=== PATIENT | female | born 1965 | race Caucasian/White ===

== ENCOUNTER 2016-12-23 11:53 | Emergency (ER) | payer MEDICAID, OTHER ==
[~2016-12-23] VITALS: Ht 160 cm; Wt 49.9 kg
[2016-12-23 11:53] VITALS: BP 153/101
[~2016-12-23 11:53] MED LIST: AMBIEN10 MG ORAL; AMBIEN5 MG ORAL; ATIVAN0.5 MG ORAL; BUSPAR10 MG ORAL; BUSPIRONE HCL10 M1 ORAL; CARISOPRODOL350 MG; CATAPRES0.2 MG ORAL; COLACE100 MG ORAL; CYCLOBENZAPRINE10 MG ORAL; DIFLUCAN200 MG ORAL; IBUPROFEN600 MG ORAL; IMITREX50 MG ORAL; LEXAPRO10 MG ORAL; LOESTRIN FE 1-1 EACH PO; LOESTRIN1 EAC1 PO; MONTELUKAST SOD10 MG ORAL; NORCO 10/3251 EA ORAL; NORCO 5-325 TA1 EACH ORAL; NORVASC5 MG ORAL; NYSTATIN100000 UN1 ORAL; OXYCODONE HCL5 MG ORAL; OXYCONTIN40 MG ORAL; PERCOCET 10-321 EAC1 PO; SEROQUEL400 MG ORAL; SINGULAIR10 MG ORAL; SOMA350 MG PO; SPIRIVA18 MCG INH; SUMATRIPTAN SUC50 MG PO; SYMBICORT 1601 PUFFS INH; SYMBICORT 16010.2 G1 IH; SYMBICORT2 PUFF1 INH; TOPIRAMATE100 MG ORAL; TRAMADOL HCL50 MG; TRAZODONE HCL150 MG ORAL; ZANTAC150 MG ORAL
--- NOTE | 2016-12-23 12:09 | Emergency Room Report ---
History of Present Illness General Chief Complaint: Seizure Source: Patient, EMS (Omid Stapleton M.D.) Present Illness HPI 51-year-old female history of hypertension, back surgeries with fusion, ? Insomnia or psych history on Seroquel, Presenting with seizure. Patient states that she takes the Seroquel for insomnia, she increased her dose of 1200 on her own because she said it was not working. Patient states that she feels like she had a seizure, states that she felt some twitching and remembers falling. Does not remember anything else. States that her family told her that she had a seizure was generalized shaking. Patient denies any history of seizures. Denies any daily alcohol use. Denies any recent head trauma. Denies possibility of . Denies any other drug use Now currently complaining of bilateral back pain, denies any headache nausea vomiting blurry vision at this time (Omid Stapleton M.D.) Allergies: Coded Allergies: CODEINE (Unverified Allergy, Severe, Itching, 05/20/14) IBUPROFEN (Unverified Allergy, Severe, Anaphylaxis, 05/20/14) KETOROLAC (Unverified Allergy, Severe, Anaphylaxis, 05/20/14) Patient History Past Medical History: see triage record Past Surgical History: none Pertinent Family History: none Last Menstrual Period: 11/26/16 Now: No Reviewed Nursing Documentation: PMH: Agreed, PSxH: Agreed (Omid Stapleton M.D. ) Nursing Documentation-PMH Hx Cardiac Problems: No Hx Hypertension: Yes Hx Asthma: Yes Hx COPD: Yes Hx Cancer: No Hx Gastrointestinal Problems: No (Omid Stapleton M.D.) Review of Systems All Other Systems: negative except mentioned in HPI (Omid Stapleton M.D.) Physical Exam Vital Signs Date Time Temp Pulse Resp B/P (MAP) Pulse Ox O2 Delivery O2 Flow Rate FiO2 12/23/16 11:32 98.4 84 16 144/107 99 Room Air Sp02 EP Interpretation: reviewed, normal General Appearance: normal inspection, well appearing, no apparent distress, alert, GCS 15, non-toxic Head: normocephalic - non boggy hematoma occipital region Eyes: bilateral eye normal inspection, bilateral eye PERRL, bilateral eye EOMI ENT: normal ENT inspection, normal pharynx, normal voice, moist mucus membranes Neck: normal inspection, full range of motion, supple Respiratory: normal inspection, lungs clear, normal breath sounds, no respiratory distress, no retraction, no wheezing, speaking full sentences, chest symmetrical Cardiovascular #1: normal inspection, regular rate, rhythm, no edema, normal capillary refill Cardiovascular #2: 2+ radial (R), 2+ radial (L) Gastrointestinal: normal inspection, non tender, soft, non-distended, no guarding Musculoskeletal: non-tender, other - b/l paraspinal lumbar tenderness no midline tenderness. Neurologic: normal inspection, alert, oriented x3, responsive, heavy cleaner III-XII nml as tested, motor strength/tone normal, sensory intact, speech normal Psychiatric: normal inspection, judgement/insight normal, memory normal Skin: normal inspection, normal color, no rash, warm/dry, well hydrated, normal turgor (Retino,Clairose M.D.) Medical Decision Making Diagnostic Impression: Primary Impression: Fall Qualified Codes: W19.XXXA - Unspecified fall, initial encounter Additional Impression: Back pain Qualified Codes: M54.5 - Low back pain; G89.29 - Other chronic pain ER Course 51-year-old female presenting with seizure DDX: Primary seizure, triggered by infection UTI/PNA vs. dehydration vs. medication non compliance Electrolyte disturbance: hypoglycemia vs. hyponatremia vs. hypocalcemia vs. hypomagnesemia Cardiac: Arrythmia/acs Intracranial pathology: intracranial bleed, stroke Tox Plan: BGM EKG, UCG Labs, seizure medication levels, tox labs CT head ER course: No further seizures in ED Has been stable during ED stay. AOx4, no neurological signs or symptoms it is unclear if patient actually had seizure yesterday as she states she does remember "shaking" CT head grossly negative given pain meds for back pain Signed out to Dr Lewis 51 yo F with back pain after falling, possible seizure first time seizure -fu CT head -pending back pain symptom control -DC with tylenol and robaxin in chart EKG Diagnostic Results EP Interpretation: Yes Rate: normal Rhythm: NSR ST Segments: Q waves in the inferior leads, prolonged QT interval, T wave inversion in V2 and V3 ASA given to patient: No Rhythm Strip EP Interpretation: Yes Rate: 77 Rhythm: NSR, no PVCs, no ectopy Laboratory Tests Test 10/29/17 12:00 White Blood Count 9.7 K/UL (4.8-10.8) Red Blood Count 4.85 M/UL (4.20-5.40) Hemoglobin 16.7 G/DL (12.0-16.0) H Hematocrit 46.2 % (37.0-47.0) Mean Corpuscular Volume 95 FL (80-99) Mean Corpuscular Hemoglobin 34.5 PG (27.0-31.0) H Mean Corpuscular Hemoglobin Concent 36.1 G/DL (32.0-36.0) H Red Cell Distribution Width 11.5 % (11.6-14.8) L Platelet Count 300 K/UL (150-450) Mean Platelet Volume 7.1 FL (6.5-10.1) Neutrophils (%) (Auto) 81.6 % (45.0-75.0) H Lymphocytes (%) (Auto) 10.4 % (20.0-45.0) L Monocytes (%) (Auto) 6.8 % (1.0-10.0) Eosinophils (%) (Auto) 0.6 % (0.0-3.0) Basophils (%) (Auto) 0.7 % (0.0-2.0) Sodium Level 140 MMOL/L (136-145) Potassium Level 3.9 MMOL/L (3.5-5.1) Chloride Level 104 MMOL/L (98-107) Carbon Dioxide Level 26 MMOL/L (21-32) Anion Gap 10 mmol/L (5-15) Blood Urea Nitrogen 12 mg/dL (7-18) Creatinine 0.9 MG/DL (0.55-1.30) Estimate Glomerular Filtration Rate > 60 mL/min (>60) Glucose Level 98 MG/DL (74-106) Calcium Level 10.2 MG/DL (8.5-10.1) H Total Bilirubin 0.8 MG/DL (0.2-1.0) Aspartate Amino Transferase (AST) 23 U/L (15-37) Alanine Aminotransferase (ALT) 20 U/L (12-78) Alkaline Phosphatase 81 U/L (46-116) Troponin I 0.000 ng/mL (0.000-0.056) Total Protein 9.0 G/DL (6.4-8.2) H Albumin 4.4 G/DL (3.4-5.0) Globulin 4.6 g/dL Albumin/Globulin Ratio 1.0 (1.0-2.7) Salicylates Level < 2.8 ug/mL (2.8-20) L Acetaminophen Level < 10 MCG/ML (10-30) L Serum Alcohol < 3 mg/dL (Omid Stapleton M.D.) ER Course Patient signed out to me at 2pm pending re-eval Patient with chronic back pain. Review of EMR shows known L5 fusion as far back as 2015 has been here before similar I doubt seizure - more like pseudoseizure - as patient remembers the actual event. No history of seizures High degree of anxiety Was given multiple rounds of pain medication by Dr Stapleton Feels better, ambulating DC home with PMD followup (HERSON LEWIS M.D.) CT/MRI/US Diagnostic Results CT/MRI/US Diagnostic Results : Imaging Test Ordered: CT head Impression Findings: The ventricular system is normal in size and configuration. There is no shift of midline structures. No abnormal extra-axial fluid collections are noted. There is no evidence of intracerebral bleeding. No other abnormal high or low density areas are noted within the brain. The calvarium is intact. The orbits and sinuses are unremarkable. Impression: Normal CT scan of the head without contrast material. This agrees with the preliminary interpretation provided overnight by [facility]. (Omid Stapleton M.D.) Last Vital Signs Date Time Temp Pulse Resp B/P (MAP) Pulse Ox O2 Delivery O2 Flow Rate FiO2 12/23/16 11:32 98.4 84 16 144/107 99 Room Air (Omid Stapleton M.D.) Status: improved (HERSON LEWIS M.D.) Disposition: HOME, SELF-CARE Condition: Improved Scripts Lidocaine (Lidoderm) 1 Each Adh..patch 1 PATCH TOPIC DAILY for 7 Days, #14 PATCH 0 Refills Patch(es) may remain in place for up to 12 hours in any 24-hour period. Prov: HERSON LEWIS M.D. 12/23/16 Acetaminophen* (ACETAMINOPHEN EXTRA STRENGTH*) 500 Mg Tablet 500 MG ORAL Q8H Y for Fever/Headache/Mild Pain, #30 TAB 0 Refills Prov: Omid Stapleton M.D. 12/23/16 Methocarbamol* (ROBAXIN-750*) 750 Mg Tablet 750 MG PO QID, #28 TAB 0 Refills Prov: Omid Stapleton M.D. 12/23/16 Patient Instructions: Back Pain, Adult, Seizure, Adult Omid Stapleton M.D. Dec 23, 2016 12:09 HERSON LEWIS M.D. Dec 23, 2016 14:11
[2016-12-23 12:24] LABS: BASOPHILS % (AUTO) 0.7 % (0.0-2.0); EOSINOPHILS % (AUTO) 0.6 % (0.0-3.0); LYMPHOCYTES % (AUTO) 10.4 % (20.0-45.0); MEAN CORPUSCULAR HEMOGLOBIN 34.5 PG (27.0-31.0); MEAN CORPUSCULAR HGB CONC 36.1 G/DL (32.0-36.0); MEAN CORPUSCULAR VOLUME 95 FL (80-99); MEAN PLATELET VOLUME 7.1 FL (6.5-10.1); MONOCYTES % (AUTO) 6.8 % (1.0-10.0); NEUTROPHILS % (AUTO) 81.6 % (45.0-75.0); PLATELET COUNT 300 K/UL (150-450); RED BLOOD COUNT 4.85 M/UL (4.20-5.40); RED CELL DISTRIBUTION WIDTH 11.5 % (11.6-14.8); WHITE BLOOD COUNT 9.7 K/UL (4.8-10.8)
[2016-12-23] MEDS ORDERED: Methocarbamol 750mg tab ORAL ONE (12:30)
[2016-12-23 12:45] LABS: ALANINE AMINOTRANSFERASE 20 U/L (12-78); ANION GAP 10 mmol/L (5-15); ASPARTATE AMINO TRANSFERASE 23 U/L (15-37); CALCIUM 10.2 MG/DL (8.5-10.1); CARBON DIOXIDE 26 MMOL/L (21-32); CHLORIDE 104 MMOL/L (98-107); CREATININE 0.9 MG/DL (0.55-1.30); GLOMERULAR FILTRATION RATE > 60 mL/min (>60); POTASSIUM 3.9 MMOL/L (3.5-5.1); SODIUM 140 MMOL/L (136-145)
[2016-12-23 13:16] LABS: ALCOHOL < 3 mg/dL
[2016-12-23 13:19] LABS: ACETAMINOPHEN < 10 MCG/ML (10-30)
[2016-12-23] MEDS ORDERED: ROBAXIN-750750 MG PO (13:27)
[2016-12-23] MEDS ORDERED: ACETAMINOPHEN500 M3 ORAL (13:27)
[2016-12-23] MEDS ORDERED: Morphine Sulfate 4mg/ml Inj IVP ONE (13:30)
[2016-12-23] MEDS ORDERED: LIDODERM700 M1 TOPIC (14:16)
[2016-12-23 14:20] VITALS: BP 139/83
--- NOTE | 2016-12-24 08:59 | Diagnostic Imaging Report ---
Indication: Altered mental status Technique: Continuous helical CT scanning of the head was performed without intravenous contrast material. Axial and coronal 5 mm sections were generated. Radiation dose was minimized using automated exposure control Dose: Total Dose Length Product - DLP [address] Dose Index - CTDIvol(s) 70.38 mGy. Comparison: 08/19/2014 Findings: The ventricular system is normal in size and configuration. There is no shift of midline structures. No abnormal extra-axial fluid collections are noted. There is no evidence of intracerebral bleeding. No other abnormal high or low density areas are noted within the brain. The calvarium is intact. The orbits and sinuses are unremarkable. Impression: Normal CT scan of the head without contrast material. This agrees with the preliminary interpretation provided overnight by [facility]. The CT scanner at [facility] is accredited by the [employer] and the scans are performed using protocols designed to limit radiation exposure to as low as reasonably achievable to attain images of sufficient resolution adequate for diagnostic evaluation.
--- NOTE | 2016-12-24 10:42 | Diagnostic Imaging Report ---
Indication: Shortness of breath/cough, respiratory disorders, COPD, asthma, bronchitis Technique: One view of the chest Comparison: Multiplanar 2015 Findings: Lungs and pleural spaces are clear. Heart size is normal. Lower cervical spine fusion hardware is again noted. Findings are unchanged Impression: No acute process
--- NOTE | 2016-12-27 18:03 | Cardiology Report ---
APPROVED REPORT EKG Measurement Heart [id number] NH 100P35 [id number] Sinus rhythm with short NH T wave abnormality, consider anterior ischemia Prolonged QT Abnormal ECG
== END 2016-12-23 14:40 | disposition home or self-care (01) ==
LOC: EDBD 11:53 → EMR 14:24
DX: M54.5 Low back pain (principal); W19.XXXA Unspecified fall, initial encounter; Y92.9 Unspecified place or not applicable; I10 Essential (primary) hypertension; J44.9 Chronic obstructive pulmonary disease, unspecified; G47.00 Insomnia, unspecified; R41.82 Altered mental status, unspecified; Z79.899 Other long term (current) drug therapy; Z88.6 Allergy status to analgesic agent; Z88.8 Allergy status to other drugs, medicaments and biological substances; Z98.1 Arthrodesis status
CPT/HCPCS: 36415; 70450; 71010; 80053; 80329; 84484; 85025; 93005; 96361; 96374; 99284; J2270

== ENCOUNTER 2017-01-02 15:37 | Outpatient (CLI) | payer MEDICAID ==
[~2017-01-02 15:37] MED LIST changes: +ACETAMINOPHEN500 M3 ORAL; +LIDODERM700 M1 TOPIC; +ROBAXIN-750750 MG PO
--- NOTE | 2017-01-02 16:42 | Diagnostic Imaging Report ---
Indication: Back pain Comparison: None Findings: 3 views of the lumbar spine were obtained. There is a severe vertebral fracture of the T12 vertebra. Acuity of this is unknown and. Please correlate clinically. Patient is at L4-5 posterior fusion with pedicle screws and fusion rods and discectomy. Bones appear osteopenic. Impression: Fracture of the T12 vertebra acuity indeterminate. The degree of collapse is severe estimated at 70%. Osteoporosis L4-5 fusion
--- NOTE | 2017-01-02 16:45 | Diagnostic Imaging Report ---
Indication: Neck Pain Findings: 3 views of the cervical spine were obtained. No acute fracture is identified. Anterior fusion at C4-5, discectomy at this level and discectomy/prosthesis placement C5-6 noted. Hardware alignment and position appear unremarkable. Flexion, neutral and extension views show no malalignment or significant change. Impression: Mid cervical discectomy and partial anterior fusion. Negative flexion and extension views. No subluxation demonstrated.
== END 2017-01-02 17:37 | disposition home or self-care (01) ==
LOC: RAD 15:37
DX: M43.22 Fusion of spine, cervical region (principal); S22.089A Unspecified fracture of T11-T12 vertebra, initial encounter for closed fracture; X58.XXXA Exposure to other specified factors, initial encounter; Y93.9 Activity, unspecified; Y92.9 Unspecified place or not applicable; M81.0 Age-related osteoporosis without current pathological fracture; M43.26 Fusion of spine, lumbar region
CPT/HCPCS: 72050; 72114

== ENCOUNTER 2017-01-02 16:50 | Emergency (ER) | payer MEDICAID, OTHER ==
[~2017-01-02] VITALS: Ht 160 cm; Wt 49.4 kg
[2017-01-02] MEDS ORDERED: oxyCODONE HCL/Acetaminophen 5/325mg ORAL ONE (18:00)
--- NOTE | 2017-01-02 19:18 | Emergency Room Report ---
History of Present Illness General Chief Complaint: Back Pain-No Injury Source: Patient Present Illness HPI 51-year-old female presents to the emergency department complaining of 10 out of 10 in severity back pain and both the thoracic spine and the lower lumbar area. Patient states that her pain has been progressive for approximately one week. Patient states she was seen by her primary care provider who referred her to the emergency department for further evaluation of her back pain. Patient states that she was hot spinal surgery in the past and is receiving regular medications for pain however her back pain has not been relieved with her usual medications. Patient denies trauma or fall other than recent seizure approximately a week ago. Patient denies numbness or tingling in the extremities she states that her pain in her spine is in the location that she has had pain in the past however it is unusual that her medications are not working. She states her pain in the T-spine is more appreciable than the lumbar area. She denies weakness in the lower extremities.Denies loss of sensation or gross motor movements of the extremities, incontinence of bowel or bladder. Denies urinary retention. Allergies: Coded Allergies: CODEINE (Unverified Allergy, Severe, Itching, 05/20/14) IBUPROFEN (Unverified Allergy, Severe, Anaphylaxis, 05/20/14) KETOROLAC (Unverified Allergy, Severe, Anaphylaxis, 05/20/14) Patient History Past Medical History: see triage record Past Surgical History: other - spine surgery hx Pertinent Family History: none Last Menstrual Period: 5 weeks Now: No Reviewed Nursing Documentation: PMH: Agreed, PSxH: Agreed Nursing Documentation-PMH Hx Cardiac Problems: No Hx Hypertension: Yes Hx Asthma: Yes Hx COPD: Yes Hx Cancer: No Hx Gastrointestinal Problems: No History Of Psychiatric Problem: Yes - insomnia Hx Neurological Problems: Yes - back problems Review of Systems All Other Systems: negative except mentioned in HPI Physical Exam Vital Signs Date Time Temp Pulse Resp B/P (MAP) Pulse Ox O2 Delivery O2 Flow Rate FiO2 01/02/17 16:54 98.1 91 16 141/92 98 Room Air Sp02 EP Interpretation: reviewed, normal General Appearance: no apparent distress, alert, GCS 15, non-toxic Head: normocephalic, atraumatic Eyes: bilateral eye normal inspection, bilateral eye PERRL ENT: hearing grossly normal, normal voice Neck: full range of motion, no bony tend, supple/symm/no masses Respiratory: lungs clear, normal breath sounds, speaking full sentences Cardiovascular #1: regular rate, rhythm, normal capillary refill Genitourinary: normal inspection, no CVA tenderness Musculoskeletal: back normal, gait/station normal, normal range of motion, tender - TTP to the midline and paraspinal area of the lower Thoracis spine, and the lumbar spine. Pt. NVI to both extremities Neurologic: alert, oriented x3, responsive, motor strength/tone normal, sensory intact, normal gait, speech normal, grossly normal, oriented Reflexes: 2+ ankle (R), 2+ ankle (L) Skin: normal color, no rash, warm/dry, well hydrated Medical Decision Making PA Attestation Dr. Garcia is my supervising Physician whom patient management has been discussed with. Diagnostic Impression: Primary Impression: Burst fracture of T12 vertebra Additional Impression: Exacerbation of chronic back pain ER Course 51-year-old female presents to the emergency department complaining of 10 out of 10 in severity back pain and both the thoracic spine and the lower lumbar area. Patient states that her pain has been progressive for approximately one week. Patient states she was seen by her primary care provider who referred her to the emergency department for further evaluation of her back pain. Patient states that she was hot spinal surgery in the past and is receiving regular medications for pain however her back pain has not been relieved with her usual medications. Patient denies trauma or fall other than recent seizure approximately a week ago. Patient denies numbness or tingling in the extremities she states that her pain in her spine is in the location that she has had pain in the past however it is unusual that her medications are not working. She states her pain in the T-spine is more appreciable than the lumbar area. She denies weakness in the lower extremities.Denies loss of sensation or gross motor movements of the extremities, incontinence of bowel or bladder. Denies urinary retention. Ddx considered but are not limited to Fracture, dislocation, contusion, Sprain/ Strain/Spasm, Epidural abscess, Neoplastic mets. just to name a few. Vital signs: are WNL, pt. is afebrile H&PE are most consistent with musculoskeletal injury will perform imaging to r/ o fractures/dislocations. ORDERS: - Urine Hcg: Negative - CT: T-spine: burst fracture of T12 -Per official radiology report- Please see report for specific details. - CT L-spine: Status post L4-L5 posterior pedicle screw and ruby fusion which appears intact--Per official radiology report- Please see report for specific details. ED INTERVENTIONS: - Percocet PO -D/w pt. results of her CT scan. advised pt. to rest in gurney and not to ambulate. Pt. is up and walking around multiple times. -Dilaudid 1mg IV -benadryl 25mg IV DISPOSITION: at this time pt. will be admitted to Dr. Ponce at [facility] for T12 [address] Ponce agreed to admit the pt. and to continue pt. care management. - PT. refused to be transferred to [facility] , immigration case worker will be contacted by reserves clerk to inquire if pt. is eligible to transfer to any alternative hospitals. d/w pt. that leaving AMA is not advised, and that we will do our best effort to see if she can be transferred to an alternate hospital. pt. is again advised to stay on gurney and refrain from ambulating about her room. -D/w pt. that attempts to find [facility] were unsuccessful, and that she is capped to [facility] per insurance and that is the hospital with neuro surgery that is available. Pt. agreed to go to [facility]. Labs Test 01/02/17 18:00 01/02/17 19:37 Urine HCG, Qualitative Negative White Blood Count 7.5 K/UL (4.8-10.8) Red Blood Count 5.19 M/UL (4.20-5.40) Hemoglobin 15.9 G/DL (12.0-16.0) Hematocrit 50.5 % (37.0-47.0) Mean Corpuscular Volume 97 FL (80-99) Mean Corpuscular Hemoglobin 30.7 PG (27.0-31.0) Mean Corpuscular Hemoglobin Concent 31.5 G/DL (32.0-36.0) Red Cell Distribution Width 11.8 % (11.6-14.8) Platelet Count 391 K/UL (150-450) Mean Platelet Volume 5.6 FL (6.5-10.1) Neutrophils (%) (Auto) 52.1 % (45.0-75.0) Lymphocytes (%) (Auto) 34.8 % (20.0-45.0) Monocytes (%) (Auto) 4.7 % (1.0-10.0) Eosinophils (%) (Auto) 6.5 % (0.0-3.0) Basophils (%) (Auto) 1.8 % (0.0-2.0) Prothrombin Time 9.9 SEC (9.30-11.50) Prothromb Time International Ratio 0.9 (0.9-1.1) Activated Partial Thromboplast Time 27 SEC (23-33) Sodium Level 139 MMOL/L (136-145) Potassium Level 4.5 MMOL/L (3.5-5.1) Chloride Level 104 MMOL/L (98-107) Carbon Dioxide Level 31 MMOL/L (21-32) Anion Gap 4 mmol/L (5-15) Blood Urea Nitrogen 13 mg/dL (7-18) Creatinine 1.1 MG/DL (0.55-1.30) Estimat Glomerular Filtration Rate 52.8 mL/min (>60) Glucose Level 122 MG/DL (74-106) Calcium Level 10.1 MG/DL (8.5-10.1) Total Bilirubin 0.2 MG/DL (0.2-1.0) Aspartate Amino Transf (AST/SGOT) 24 U/L (15-37) Alanine Aminotransferase (ALT/SGPT) 26 U/L (12-78) Alkaline Phosphatase 185 U/L (46-116) Total Protein 8.5 G/DL (6.4-8.2) Albumin 4.2 G/DL (3.4-5.0) Globulin 4.3 g/dL Albumin/Globulin Ratio 1.0 (1.0-2.7) Last Vital Signs Date Time Temp Pulse Resp B/P (MAP) Pulse Ox O2 Delivery O2 Flow Rate FiO2 01/02/17 16:54 98.1 91 16 141/92 98 Room Air Disposition: ADMITTED INPATIENT Condition: Serious Referrals: [facility],REFERRING (PCP) Lesli Cummins Jan 02, 2017 19:18
[2017-01-02] MEDS ORDERED: Morphine Sulfate 4mg/ml Inj IVP ONE ×2 (19:45→20:15)
[2017-01-02 19:53] VITALS: BP 137/94
[2017-01-02 19:53] LABS: BASOPHILS % (AUTO) 1.8 % (0.0-2.0); EOSINOPHILS % (AUTO) 6.5 % (0.0-3.0); HEMATOCRIT 50.5 % (37.0-47.0); HEMOGLOBIN 15.9 G/DL (12.0-16.0); LYMPHOCYTES % (AUTO) 34.8 % (20.0-45.0); MEAN CORPUSCULAR VOLUME 97 FL (80-99); MONOCYTES % (AUTO) 4.7 % (1.0-10.0); NEUTROPHILS % (AUTO) 52.1 % (45.0-75.0); PLATELET COUNT 391 K/UL (150-450); RED BLOOD COUNT 5.19 M/UL (4.20-5.40); RED CELL DISTRIBUTION WIDTH 11.8 % (11.6-14.8); WHITE BLOOD COUNT 7.5 K/UL (4.8-10.8)
[2017-01-02 20:03] LABS: INR 0.9 (0.9-1.1)
[2017-01-02 20:08] LABS: ALANINE AMINOTRANSFERASE 26 U/L (12-78); ALBUMIN 4.2 G/DL (3.4-5.0); ALKALINE PHOSPHATASE 185 U/L (46-116); ANION GAP 4 mmol/L (5-15); ASPARTATE AMINO TRANSFERASE 24 U/L (15-37); BILIRUBIN,TOTAL 0.2 MG/DL (0.2-1.0); BLOOD UREA NITROGEN 13 mg/dL (7-18); CALCIUM 10.1 MG/DL (8.5-10.1); CARBON DIOXIDE 31 MMOL/L (21-32); CHLORIDE 104 MMOL/L (98-107); CREATININE 1.1 MG/DL (0.55-1.30); POTASSIUM 4.5 MMOL/L (3.5-5.1); SODIUM 139 MMOL/L (136-145)
[2017-01-02] MEDS ORDERED: DiphenhydrAMINE 50mg/ml Inj IVP ONE (23:30)
[2017-01-02] MEDS ORDERED: HYDROmorphone 1mg/ml Carpuject IVP ONE (23:30)
[2017-01-03 01:26] VITALS: BP 132/85
[2017-01-03 02:17] VITALS: BP 132/85
--- NOTE | 2017-01-03 10:49 | Diagnostic Imaging Report ---
Indication: Back pain Technique: Continuous helical transaxial imaging of the lumbar spine was obtained from the lung bases to the pubic symphysis. No IV contrast was administered. Coronal 2-D reformats were also obtained. Study obtained in a Siemens sensation [address] Total Dose length Product (DLP): [address] Dose Index Volume (CTDIvol): 2.25, 10.71 mGy Comparison: None Findings: There is no evidence of an acute fracture or malalignment. Height and configuration of the vertebral bodies and intervertebral discs are within normal limits. The facets are unremarkable. There is no soft tissue swelling. There is posterior fusion hardware with pedicle screws and fusion rods at L4-5. Hardware alignment and position appear unremarkable. Discectomy and prosthesis noted at L4-5. Some streak artifact from hardware limits evaluation of adjacent bone and structures. The There is a severe compression fracture of the T12 vertebra with moderate posterior retropulsion. This is described on CT thoracic spine report for more detail. There is a moderate amount of stool within the visualized part of the colon. Impression: No acute findings in the lumbar spine. L4-5 fusion and discectomy noted. The CT scanner at [facility] is accredited by the [employer] and the scans are performed using dose optimization techniques as appropriate to a performed exam including Automatic Exposure control.
--- NOTE | 2017-01-03 10:53 | Diagnostic Imaging Report ---
Indication: Back pain Technique: Continuous helical transaxial imaging of the thoracic spine was obtained from the lung bases to the pubic symphysis. No IV contrast was administered. Coronal 2-D reformats were also obtained. Study obtained in a Siemens sensation [address] Total Dose length Product (DLP): [address] Dose Index Volume (CTDIvol): 2.5, 17.77 mGy Comparison: None Findings: There is a burst fracture of the T12 vertebra which is comminuted and about 80% loss of height. Paravertebral soft tissue swelling/edema noted. There is moderate retropulsion of vertebral fragments into the canal narrowing the central canal by at least 50%. Correlate clinically for cord compression. Evaluation with MRI could be done for more specific evaluation of the cord and/or cauda equina compression. The remainder of the thoracic spine is normal and intact. C5-6 disc prosthesis incidentally noted. There is evidence of an acute fracture of the T11 vertebra at the superior endplate and posterior superior corner of the vertebra. There is only minimal loss of height of the endplate. There is no retropulsion associated with this. Impression: Acute T12 burst fracture. Moderate retropulsion and suspected cord compression. Please correlate clinically. A mild nondisplaced fracture of the superior endplate T11. No associated retropulsion. [facility] has communicated the preliminary results to the Emergency Department. Their findings are largely concordant with this report. The CT scanner at [facility] is accredited by the [employer] and the scans are performed using dose optimization techniques as appropriate to a performed exam including Automatic Exposure control.
--- NOTE | 2017-01-13 16:26 | Cardiology Report ---
APPROVED REPORT EKG Measurement Heart [id number] [place] [id number] Normal sinus rhythm Right atrial enlargement RV conduction delay Borderline ECG
--- NOTE | 2017-01-13 16:26 | Cardiology Report ---
APPROVED REPORT EKG Measurement Heart [id number] [place] 112P75 [id number] Normal sinus rhythm Right atrial enlargement RV conduction delay Borderline ECG
--- NOTE | 2017-01-13 16:26 | Cardiology Report ---
APPROVED REPORT EKG Measurement Heart [id number] [place] 112P75 [id number] Normal sinus rhythm Right atrial enlargement RV conduction delay Borderline ECG
== END 2017-01-03 02:18 | disposition short-term general hospital (02) ==
LOC: EMR 18:08
DX: S22.081A Stable burst fracture of T11-T12 vertebra, initial encounter for closed fracture (principal); X58.XXXA Exposure to other specified factors, initial encounter; Y92.89 Other specified places as the place of occurrence of the external cause; G89.29 Other chronic pain; I10 Essential (primary) hypertension; J44.9 Chronic obstructive pulmonary disease, unspecified; Z98.890 Other specified postprocedural states
CPT/HCPCS: 36415; 72128; 72131; 80053; 81025; 85025; 85610; 85730; 86850; 86900; 86901; 93005; 96374; 96375; 96376; 99285; J1170; J1200; J2270; J2405

== ENCOUNTER 2017-03-19 02:20 | Emergency (ER) | payer OTHER ==
[~2017-03-19] VITALS: Ht 160 cm; Wt 52.2 kg
[2017-03-19 02:31] VITALS: BP 142/99
[2017-03-19] MEDS ORDERED: Norco 5mg/325mg tab ORAL ONE (02:45)
[2017-03-19] MEDS ORDERED: Albuterol/Ipratropium 3ml neb HHN ONE (02:45)
[2017-03-19] MEDS ORDERED: ADULT WAL-100 MG/5 M ORAL (02:54)
[2017-03-19] MEDS ORDERED: PREDNISONE20 MG ORAL (02:54)
[2017-03-19] MEDS ORDERED: ALBUTEROL SULF8.5 GM INH (02:54)
[2017-03-19 03:19] VITALS: BP 142/99
--- NOTE | 2017-03-19 04:41 | Emergency Room Report ---
History of Present Illness General Chief Complaint: Upper Respiratory Illness Source: Patient Present Illness HPI This 51-year-old female presented after increased cough and generalized body aches. Patient reports having a sore throat as well as cough which is nonproductive. She presenting prior history of COPD. She states she's never been a smoker. Patient states that she had prior history of low back fracture and has the previously had last been prescribed pain medication and approximately December. The patient stated that she had multiple of COPD exacerbations and normally takes steroids as well as pain medications when she has a flare Allergies: Coded Allergies: CODEINE (Unverified Allergy, Severe, Itching, 05/20/14) IBUPROFEN (Unverified Allergy, Severe, Anaphylaxis, 05/20/14) KETOROLAC (Unverified Allergy, Severe, Anaphylaxis, 05/20/14) Patient History Past Medical History: see triage record, COPD Past Surgical History: other - lumbar fracture surgery Last Menstrual Period: feb 24 Now: No Reviewed Nursing Documentation: PMH: Agreed, PSxH: Agreed Nursing Documentation-PMH Hx Cardiac Problems: No Hx Hypertension: Yes Hx Asthma: Yes Hx COPD: Yes Hx Cancer: No Hx Gastrointestinal Problems: No Hx Neurological Problems: Yes Review of Systems All Other Systems: negative except mentioned in HPI Physical Exam Vital Signs Date Time Temp Pulse Resp B/P (MAP) Pulse Ox O2 Delivery O2 Flow Rate FiO2 03/19/17 02:22 99.1 86 18 142/99 98 Room Air 03/19/17 02:31 98 General Appearance: well appearing, no apparent distress, alert, GCS 15 Head: normocephalic, atraumatic ENT: hearing grossly normal, normal voice Neck: full range of motion, supple Respiratory: lungs clear, normal breath sounds, no respiratory distress, speaking full sentences Cardiovascular #1: normal inspection, normal peripheral pulses Gastrointestinal: normal inspection Musculoskeletal: no calf tenderness Neurologic: normal gait Psychiatric: mood/affect normal Skin: no rash Medical Decision Making Diagnostic Impression: Primary Impression: Bronchitis Additional Impressions: Viral respiratory infection Chronic pain ER Course Patient presented for cough. Differential diagnosis included but was not limited to bronchitis, pneumonia, pulmonary embolism, pericarditis, asthma, foreign body. Patient has a benign exam and does not appear to require any further imaging or laboratory testing at this time. The patient was given Percocet for pain. The [facility] database was reviewed for the patient's prior prescription history. The patient was noted to have multiple recent prescriptions for controlled substances and despite patient's prior statements that she last received pain medications in December she was noted to have received the 90 hydrocodone pills approximately 3 weeks prior to visit. The patient given breathing treatment. The patient is given prescription for oral steroids. The patient states she's adequate doses of her inhalers. The patient is advised followup with her primary care physician's for any desired pain prescription. The patient is advised to follow up with primary care doctor in 1-2 days. Patient is advised to return if any worsening condition or if any changes in status that are concerning. This report is dictated with [employer] thread singer software which may occasionally lead to discrepancies related to use of this software. Last Vital Signs Date Time Temp Pulse Resp B/P (MAP) Pulse Ox O2 Delivery O2 Flow Rate FiO2 03/19/17 03:19 99.1 86 22 142/99 99 Room Air 21 Status: improved Disposition: HOME, SELF-CARE Condition: Stable Scripts Guaifenesin* (ADULT WAL-TUSSIN*) 100 Mg/5 Ml Liquid 10 ML ORAL Q4H, #120 ML Prov: Yousif Garcia 03/19/17 Albuterol Sulfate* (ALBUTEROL SULFATE MDI*) 8.5 Gm Hfa.aer.ad 2 PUFF INH Q4H Y for cough/wheezing, #1 EA 0 Refills Prov: Yousif Garcia 03/19/17 Prednisone* (PREDNISONE*) 20 Mg Tablet 40 MG ORAL DAILY, #10 TAB Prov: Yousif Garcia 03/19/17 Patient Instructions: Acute Bronchitis Yousif Garcia Mar 19, 2017 04:41
== END 2017-03-19 03:20 | disposition home or self-care (01) ==
LOC: EMR 02:32
DX: J40 Bronchitis, not specified as acute or chronic (principal); J06.9 Acute upper respiratory infection, unspecified; B97.89 Other viral agents as the cause of diseases classified elsewhere; G89.29 Other chronic pain; J44.9 Chronic obstructive pulmonary disease, unspecified; I10 Essential (primary) hypertension; Z88.6 Allergy status to analgesic agent
CPT/HCPCS: 94640; 99283; J7620

== ENCOUNTER 2017-04-07 15:14 | Emergency (ER) | payer OTHER ==
[~2017-04-07] VITALS: Ht 157.5 cm; Wt 52.2 kg
[~2017-04-07 15:14] MED LIST changes: +ADULT WAL-100 MG/5 M ORAL; +ALBUTEROL SULF8.5 GM INH; +PREDNISONE20 MG ORAL
--- NOTE | 2017-04-07 15:16 | Emergency Room Report ---
History of Present Illness General Chief Complaint: Lower Extremity Injury Present Illness HPI Patient 51-year-old female brought in by EMS after increased pain to her left foot. The patient prior history of chronic pain. She was noted have increased pain to her left foot after ambulating and stated that she felt a pop. She reports having pain to the lateral aspect of the left foot. She was having difficulty ambulating. The patient brought in by EMS. As she is currently seeing pain management Allergies: Coded Allergies: CODEINE (Unverified Allergy, Severe, Itching, 05/20/14) IBUPROFEN (Unverified Allergy, Severe, Anaphylaxis, 05/20/14) KETOROLAC (Unverified Allergy, Severe, Anaphylaxis, 05/20/14) Patient History Past Medical History: see triage record Now: No Reviewed Nursing Documentation: PMH: Agreed, PSxH: Agreed Review of Systems All Other Systems: negative except mentioned in HPI Physical Exam Vital Signs Date Time Temp Pulse Resp B/P (MAP) Pulse Ox O2 Delivery O2 Flow Rate FiO2 04/07/17 15:09 98.1 84 16 102/72 98 Room Air General Appearance: well appearing, no apparent distress, alert, GCS 15 Head: normocephalic, atraumatic ENT: hearing grossly normal, normal voice Neck: full range of motion, supple Respiratory: no respiratory distress, speaking full sentences Cardiovascular #1: normal inspection Musculoskeletal: normal inspection, back normal, digits/nails normal, no calf tenderness, decreased range of mation Neurologic: normal inspection, alert, oriented x3, normal gait Psychiatric: mood/affect normal Skin: no rash Medical Decision Making Diagnostic Impression: Primary Impression: Foot fracture, left ER Course Patient presented for foot pain. Differential diagnoses include was was not limited to cellulitis, foreign body, fracture, plantar fasciitis, vascular insufficiency, sprain. Because of complexity of patient's case imaging studies were ordered. The patient was noted to have prior history of chronic pain. The left foot x-ray 3 views interpreted by me showed nondisplaced hairline fracture of the cuboid. Patient was noted to have intact pulses. X-ray 3 views of the left ankle interpreted by me showed normal allow without evident fracture. Patient was placed in posterior splint given crutches.[facility] was reviewed for the patient's prior prescription history.Patient is given prescription for Percocet. The patient was advised followup with orthopedics. Last Vital Signs Date Time Temp Pulse Resp B/P (MAP) Pulse Ox O2 Delivery O2 Flow Rate FiO2 04/07/17 15:09 98.1 84 16 102/72 98 Room Air Status: improved Disposition: HOME, SELF-CARE Condition: Stable Scripts Oxycodone/Acetaminophen 5-325* (PERCOCET 5-325 MG TABLET*) 1 Each Tablet 1 TAB ORAL Q4H Y for For Pain, #15 TAB 0 Refills Prov: Yuosif Garcia 04/07/17 Yousif Garcia Apr 07, 2017 15:16
[2017-04-07] MEDS ORDERED: PERCOCET 5-3251 EACH ORAL (15:41)
[2017-04-07 16:30] VITALS: BP 102/72
--- NOTE | 2017-04-08 10:43 | Diagnostic Imaging Report ---
Indication: left ankle pain Comparison: None Findings: 3 views of the left ankle obtained. No acute fracture, malalignment, periostitis, or osteochondral defects are identified. Soft tissues are unremarkable. Impression: No acute findings
--- NOTE | 2017-04-08 10:45 | Diagnostic Imaging Report ---
Indication: Pain Comparison: None Findings: 3 views of the left foot were obtained. No acute fractures, malalignment, erosions or periostitis are identified. Soft tissues are unremarkable. Impression: No acute findings
== END 2017-04-07 17:17 | disposition home or self-care (01) ==
LOC: EDBD 15:14 → EMR 15:43
DX: S92.902A Unspecified fracture of left foot, initial encounter for closed fracture (principal); X58.XXXA Exposure to other specified factors, initial encounter; Y92.9 Unspecified place or not applicable; Z88.6 Allergy status to analgesic agent; Z88.5 Allergy status to narcotic agent
CPT/HCPCS: 29515; 99284

== ENCOUNTER 2017-10-31 21:49 | Emergency (ER) | payer OTHER ==
[~2017-10-31] VITALS: Ht 160 cm; Wt 56.7 kg
[~2017-10-31 21:49] MED LIST changes: +PERCOCET 5-3251 EACH ORAL
--- NOTE | 2017-10-31 22:15 | Emergency Room Report ---
History of Present Illness General Chief Complaint: Upper Respiratory Illness Source: Patient, EMS Present Illness HPI Is a 52-year-old female with history of chronic pain. She also has history of COPD. She presents with chief complaint of hemoptysis. Said that she been coughing and noticed some specks of blood. Also with sore throat and losing her voice. His been ongoing for the last to 3 days. No nausea no vomiting. No fever chills. Worse with coughing. Worse with swallowing. Denies any other complaint. Denies any chest pain or weight loss. Allergies: Coded Allergies: CODEINE (Unverified Allergy, Severe, Itching, 05/20/14) IBUPROFEN (Unverified Allergy, Severe, Anaphylaxis, 05/20/14) KETOROLAC (Unverified Allergy, Severe, Anaphylaxis, 05/20/14) Patient History Past Medical History: see triage record, old chart reviewed Past Surgical History: other Pertinent Family History: none Social History: Denies: smoking Now: No Immunizations: other Reviewed Nursing Documentation: PMH: Agreed; PSxH: Agreed Nursing Documentation-PMH Hx Cardiac Problems: No Hx Hypertension: Yes Hx Asthma: Yes Hx COPD: Yes Hx Cancer: No Hx Gastrointestinal Problems: No Hx Neurological Problems: Yes Review of Systems Eye: Denies: eye pain, blurred vision ENT: Denies: ear pain, nose congestion, throat swelling Respiratory: Reports: cough; Denies: shortness of breath Cardiovascular: Denies: chest pain, palpitations Gastrointestinal: Denies: abdominal pain, diarrhea, nausea, vomiting Musculoskeletal: Denies: back pain, joint pain Skin: Denies: rash Neurological: Denies: headache, numbness Endocrine: Denies: increased thirst, increased urine Hematologic/Lymphatic: Denies: easy bruising All Other Systems: negative except mentioned in HPI Physical Exam Vital Signs Date Time Temp Pulse Resp B/P (MAP) Pulse Ox O2 Delivery O2 Flow Rate FiO2 10/31/17 22:00 98.6 69 18 134/92 95 Room Air 98.6 vitals normal Sp02 EP Interpretation: reviewed, normal General Appearance: well appearing, no apparent distress, alert Head: normocephalic, atraumatic Eyes: bilateral eye PERRL, bilateral eye EOMI ENT: hearing grossly normal, normal pharynx Neck: full range of motion, supple, no meningismus Respiratory: chest non-tender, lungs clear, normal breath sounds Cardiovascular #1: regular rate, rhythm, no murmur Gastrointestinal: normal bowel sounds, non tender, no mass, no organomegaly, no bruit, non-distended Musculoskeletal: back normal, gait/station normal, normal range of motion Neurologic: alert, oriented x3 Psychiatric: anxious Skin: warm/dry Medical Decision Making Diagnostic Impression: Primary Impression: Hemoptysis Additional Impressions: Laryngitis Cocaine abuse ER Course Patient with a cough and hemoptysis. No evidence of pneumonia, sepsis, PE or dissection. Her discharge home. Chest X-Ray Diagnostic Results Chest X-Ray Diagnostic Results : Chest X-Ray Ordered: Yes # of Views/Limited/Complete: 1 View Indication: Chest Pain EP Interpretation: Yes Interpretation: no consolidation, no effusion, no pneumothorax, no acute cardiopulmonary disease, other - Atelectasis left lower lobe, unchanged Impression: No acute disease Electronically Signed by: Reuben Duggan MD Last Vital Signs Date Time Temp Pulse Resp B/P (MAP) Pulse Ox O2 Delivery O2 Flow Rate FiO2 10/31/17 22:00 98.6 69 18 134/92 95 Room Air 98.6 Status: improved Disposition: HOME, SELF-CARE Condition: Stable Additional Instructions: Abstain from drugs and alcohol. Follow-up with your doctor in 7 days. Return if symptom worsen. REUBEN DUGGAN M.D. Oct 31, 2017 22:15
[2017-10-31 22:26] LABS: BASOPHILS % (AUTO) 0.9 % (0.0-2.0); EOSINOPHILS % (AUTO) 1.6 % (0.0-3.0); HEMATOCRIT 39.7 % (37.0-47.0); HEMOGLOBIN 14.3 G/DL (12.0-16.0); LYMPHOCYTES % (AUTO) 21.7 % (20.0-45.0); MEAN CORPUSCULAR VOLUME 90 FL (80-99); MONOCYTES % (AUTO) 4.4 % (1.0-10.0); NEUTROPHILS % (AUTO) 71.4 % (45.0-75.0); PLATELET COUNT 254 K/UL (150-450); RED BLOOD COUNT 4.39 M/UL (4.20-5.40); RED CELL DISTRIBUTION WIDTH 10.9 % (11.6-14.8); WHITE BLOOD COUNT 11.6 K/UL (4.8-10.8)
[2017-10-31 22:34] LABS: ANION GAP 8 mmol/L (5-15); BLOOD UREA NITROGEN 12 mg/dL (7-18); CALCIUM 9.9 MG/DL (8.5-10.1); CARBON DIOXIDE 25 MMOL/L (21-32); CHLORIDE 104 MMOL/L (98-107); POTASSIUM 4.1 MMOL/L (3.5-5.1); SODIUM 137 MMOL/L (136-145)
[2017-10-31 22:51] LABS: APPEARANCE,URINE CLEAR; BILIRUBIN, URINE NEGATIVE (NEGATIVE); COLOR,URINE PALE YELLOW; GLUCOSE, URINE (UA) NEGATIVE (NEGATIVE); KETONES,URINE NEGATIVE (NEGATIVE); LEUKOCYTE ESTERASE ,URINE 1+ (NEGATIVE); NITRITE,URINE NEGATIVE (NEGATIVE); PH,URINE 7 (4.5-8.0); PROTEIN,URINE NEGATIVE (NEGATIVE); UROBILINOGEN,URINE NORMAL MG/DL (0.0-1.0)
[2017-11-01 00:01] VITALS: BP 134/92
--- NOTE | 2017-11-01 09:43 | Diagnostic Imaging Report ---
Indication: Dyspnea Comparison: 12/23/2016 A single view chest radiograph was obtained. Findings: Cardiomediastinal appearance is within normal limits for age. Pulmonary vascularity is appropriate. The diaphragmatic contour is smooth and costophrenic angles are sharp. No pleural effusions are identified. Lower thoracic/upper lumbar hardware has been placed. Impression: No acute findings
== END 2017-11-01 00:01 | disposition home or self-care (01) ==
LOC: EMR 22:28
DX: R04.2 Hemoptysis (principal); J04.0 Acute laryngitis; J44.9 Chronic obstructive pulmonary disease, unspecified; I10 Essential (primary) hypertension; R07.9 Chest pain, unspecified; F14.10 Cocaine abuse, uncomplicated
CPT/HCPCS: 36415; 71045; 80048; 80307; 81003; 81025; 85025; 85379; 99284

== ENCOUNTER 2019-04-04 01:28 | Emergency (ER) | payer OTHER ==
[~2019-04-04] VITALS: Ht 160 cm; Wt 63.5 kg
--- NOTE | 2019-04-04 01:48 | NUR ---
ED Nurse Note: PT walked in to ED for C/O dysuria since this morning ( 04/03/19)
[2019-04-04 01:49] VITALS: BP 130/98
[2019-04-04] MEDS ORDERED: Phenazopyridine 200mg tab ORAL ONE (02:00)
[2019-04-04] MEDS ORDERED: MACROBID100 MG ORAL (02:03)
[2019-04-04] MEDS ORDERED: PHENAZOPYRIDIN200 MG ORAL (02:03)
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
[2019-04-04 02:06] VITALS: BP 122/93
--- NOTE | 2019-04-04 02:06 | NUR ---
ER DISCHARGE NOTE: Patient is cleared to be discharged per ERMD, pt is aox4, on room air, with stable vital signs. pt was given dc and prescription instructions, pt was able to verbalize understanding, pt id band removed without complications. pt is able to ambulate with steady gait. pt took all belongings.
[2019-04-07] MEDS ORDERED: CEPHALEXIN500 MG ORAL (11:39)
== END 2019-04-04 20:26 | disposition home or self-care (01) ==
LOC: EMR 02:25
DX: N30.00 Acute cystitis without hematuria (principal); I10 Essential (primary) hypertension; J44.9 Chronic obstructive pulmonary disease, unspecified; Z88.6 Allergy status to analgesic agent
CPT/HCPCS: 87086; 87181; 99282

== ENCOUNTER 2019-04-05 05:28 | Emergency (ER) | payer OTHER ==
[~2019-04-05] VITALS: Ht 160 cm; Wt 63.5 kg
[~2019-04-05 05:28] MED LIST changes: +MACROBID100 MG ORAL; +PHENAZOPYRIDIN200 MG ORAL
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
--- NOTE | 2019-04-05 05:44 | NUR ---
ED Nurse Note: ERMD at bedside.
[2019-04-05 05:45] VITALS: BP 155/102
[2019-04-05 05:50] LABS: APPEARANCE,URINE CLOUDY; BILIRUBIN, URINE NEGATIVE (NEGATIVE); COLOR,URINE BROWN; GLUCOSE, URINE (UA) NEGATIVE (NEGATIVE); KETONES,URINE 2+ (NEGATIVE); LEUKOCYTE ESTERASE ,URINE 3+ (NEGATIVE); NITRITE,URINE POSITIVE (NEGATIVE); PH,URINE 7 (4.5-8.0); PROTEIN,URINE 2+ (NEGATIVE); UROBILINOGEN,URINE 1 MG/DL (0.0-1.0)
[2019-04-05] MEDS ORDERED: Acetaminophen 500mg (ES) tab ORAL ONE (06:00)
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
[2019-04-05] MEDS ORDERED: HYDROmorphone 1mg/ml Carpuject IVP ONE (06:15)
[2019-04-05] MEDS ORDERED: cefTRIAXone 1 GM in NS 55 ML IVPB ONE (06:15)
[2019-04-05 07:09] VITALS: BP 148/99
--- NOTE | 2019-04-05 07:13 | NUR ---
ER DISCHARGE NOTE: Patient is cleared to be discharged per ERMD, pt is aox4, on room air, with stable vital signs. pt was given dc instructions, pt was able to verbalize understanding, pt id band and iv site removed without complications. pt is able to ambulate with steady gait. pt took all belongings. pt stable upon discharge.
[2019-04-07] MEDS ORDERED: CEPHALEXIN500 MG ORAL (11:39)
== END 2019-04-05 07:09 | disposition home or self-care (01) ==
LOC: EMR 05:40
DX: N30.00 Acute cystitis without hematuria (principal); G89.4 Chronic pain syndrome; I10 Essential (primary) hypertension; J44.9 Chronic obstructive pulmonary disease, unspecified; Z88.6 Allergy status to analgesic agent
CPT/HCPCS: 80307; 81003; 87086; 87181; 96365; 96375; 99284; J0696; J1170

== ENCOUNTER 2019-08-09 12:15 | Emergency (ER) | payer OTHER ==
[~2019-08-09] VITALS: Ht 160 cm; Wt 68.0 kg
[~2019-08-09 12:15] MED LIST changes: +CEPHALEXIN500 MG ORAL
--- NOTE | 2019-08-09 12:30 | NUR ---
ED Nurse Note: Sd/[employer] Resistance -[phone]
--- NOTE | 2019-08-09 12:31 | NUR ---
ED Nurse Note: Pt ambulated to ED from home d/t "loss of balance, dizziness, bodyaches and vomiting"x 3 days. Per pt, "I feel like I keep on falling down at home". Pt is AOx4, VSS, afebrile on triage, satting at 96% on RA. Placed on bed.
[2019-08-09 12:38] VITALS: BP 129/93
--- NOTE | 2019-08-09 13:04 | NUR ---
ED Nurse Note: ERMD at bedside.
[2019-08-09] MEDS ORDERED: HYDROcodone/Acetamin 5/325 tab ONE (13:33)
[2019-08-09] MEDS ORDERED: HYDROcodone/Acetamin 5/325 tab ORAL ONE (13:45)
--- NOTE | 2019-08-09 13:50 | NUR ---
ED Nurse Note: pt returned from CT on stable condition.
[2019-08-09 13:54] LABS: APPEARANCE,URINE CLEAR; BILIRUBIN, URINE NEGATIVE (NEGATIVE); COLOR,URINE PALE YELLOW; GLUCOSE, URINE (UA) NEGATIVE (NEGATIVE); KETONES,URINE NEGATIVE (NEGATIVE); LEUKOCYTE ESTERASE ,URINE 2+ (NEGATIVE); NITRITE,URINE NEGATIVE (NEGATIVE); PH,URINE 5 (4.5-8.0); PROTEIN,URINE NEGATIVE (NEGATIVE); UROBILINOGEN,URINE NORMAL MG/DL (0.0-1.0)
[2019-08-09 13:57] LABS: BASOPHILS % (AUTO) 2.5 % (0.0-2.0); HEMATOCRIT 44.8 % (37.0-47.0); HEMOGLOBIN 14.5 G/DL (12.0-16.0); MEAN CORPUSCULAR VOLUME 99 FL (80-99); MONOCYTES % (AUTO) 5.7 % (1.0-10.0); NEUTROPHILS % (AUTO) 61.8 % (45.0-75.0); PLATELET COUNT 355 K/UL (150-450); RED BLOOD COUNT 4.52 M/UL (4.20-5.40); RED CELL DISTRIBUTION WIDTH 13.2 % (11.6-14.8); WHITE BLOOD COUNT 5.5 K/UL (4.8-10.8)
[2019-08-09 14:02] LABS: ANION GAP 15 mmol/L (5-15); BLOOD UREA NITROGEN 18 mg/dL (7-18); CALCIUM 9.2 MG/DL (8.5-10.1); CARBON DIOXIDE 22 MMOL/L (21-32); CHLORIDE 105 MMOL/L (98-107); CREATININE 1.2 MG/DL (0.55-1.30); SODIUM 142 MMOL/L (136-145)
--- NOTE | 2019-08-09 14:16 | Emergency Room Report ---
History of Present Illness General Chief Complaint: Dizziness Source: Patient Present Illness HPI Patient is a 53-year-old female who presents after increased generalized weakness and dizziness. She reports having generalized body pain. Prior history of COPD as well as generalized pain after multiple falls. She reports having some cough. She states she is had 3- coronavirus test in the past several weeks. Denies any fever. Reports feeling pain primarily to her extremities and generalized to the rest of her body. She reports having alcohol this morning at 5 AM. States she has been having more frequent falling. Noticed some bruising to both upper extremities. Denies any prior history of blood thinner use or coagulopathy. Allergies: Coded Allergies: CODEINE (Unverified Allergy, Severe, Itching, 05/20/14) IBUPROFEN (Unverified Allergy, Severe, Anaphylaxis, 05/20/14) KETOROLAC (Unverified Allergy, Severe, Anaphylaxis, 05/20/14) COVID-19 Screening Contact w/high risk pt: No Recent Travel to affected area: No Experienced COVID-19 symptoms?: No COVID-19 Testing performed [employer]: Yes COVID-19 Screening: Negative COVID-19 COVID-19 Testing Source: [facility] Patient History Past Medical History: see triage record Last Menstrual Period: 07/29/19 Now: No Nursing Documentation-PMH Hx Cardiac Problems: No Hx Hypertension: Yes Hx Asthma: Yes Hx COPD: Yes Hx Cancer: No Hx Gastrointestinal Problems: No Hx Neurological Problems: Yes Review of Systems All Other Systems: negative except mentioned in HPI Physical Exam Vital Signs Date Time Temp Pulse Resp B/P (MAP) Pulse Ox O2 Delivery O2 Flow Rate FiO2 08/09/19 12:22 98.1 77 16 129/93 (105) 96 Room Air Sp02 EP Interpretation: reviewed, normal General Appearance: normal inspection, well appearing, no apparent distress, alert, GCS 15 Head: atraumatic ENT: normal ENT inspection, hearing grossly normal, normal voice Neck: normal inspection, full range of motion, supple, no bony tend Respiratory: normal inspection, lungs clear, normal breath sounds, no respiratory distress, no retraction, no wheezing Cardiovascular #1: regular rate, rhythm, no edema Gastrointestinal: normal inspection, normal bowel sounds, non tender, soft, no guarding, no hernia Genitourinary: no CVA tenderness Musculoskeletal: normal inspection, back normal, normal range of motion Neurologic: alert, motor strength/tone normal, oriented x3, responsive, speech normal, normal inspection, other - Slurred speech Psychiatric: normal inspection, judgement/insight normal, mood/affect normal Skin: Ecchymosis/Bruising - Bruising to both upper extremities, other Medical Decision Making Diagnostic Impression: Primary Impression: Benzodiazepine causing adverse effect in therapeutic use ER Course Patient presented for reported increased generalized body aches. Reports of increased bruising to her extremities after intermittent falling and loss of balance. Differential diagnosis include was not limited to subdural hematoma, alcohol intoxication, coronavirus infection, benzodiazepine overdose among others. Patient states that she has had negative coronavirus infection testing x2. The CT imaging of the head read by radiology showed no evidence of acute intracranial hemorrhage. Patient was given medications for pain. Laboratory testing showed urine drug screen positive for alcohol as well as benzodiazepines. Patient appears to have some slurring of her speech which is likely related to use of alcohol and benzodiazepine simultaneously. Patient was advised not to drink alcohol and take anxiety medications. Patient was observed in the emergency department had gradual improvement. She was advised to follow-up with her primary care physician for recheck. She is advised to return if she had any worsening of condition or other concerns. Labs Test 08/09/19 13:15 White Blood Count 5.5 K/UL (4.8-10.8) Red Blood Count 4.52 M/UL (4.20-5.40) Hemoglobin 14.5 G/DL (12.0-16.0) Hematocrit 44.8 % (37.0-47.0) Mean Corpuscular Volume 99 FL (80-99) Mean Corpuscular Hemoglobin 32.1 PG (27.0-31.0) Mean Corpuscular Hemoglobin Concent 32.4 G/DL (32.0-36.0) Red Cell Distribution Width 13.2 % (11.6-14.8) Platelet Count 355 K/UL (150-450) Mean Platelet Volume 5.9 FL (6.5-10.1) Neutrophils (%) (Auto) 61.8 % (45.0-75.0) Lymphocytes (%) (Auto) 25.0 % (20.0-45.0) Monocytes (%) (Auto) 5.7 % (1.0-10.0) Eosinophils (%) (Auto) 5.0 % (0.0-3.0) Basophils (%) (Auto) 2.5 % (0.0-2.0) Prothrombin Time 11.5 SEC (9.30-11.50) Prothromb Time International Ratio 1.0 (0.9-1.1) Activated Partial Thromboplast Time 27 SEC (23-33) Urine Color Pale yellow Urine Appearance Clear Urine pH 5 (4.5-8.0) Urine Specific [place] 1.015 (1.005-1.035) Urine Protein Negative (NEGATIVE) Urine Glucose (UA) Negative (NEGATIVE) Urine Ketones Negative (NEGATIVE) Urine Blood Negative (NEGATIVE) Urine Nitrite Negative (NEGATIVE) Urine Bilirubin Negative (NEGATIVE) Urine Urobilinogen Normal MG/DL (0.0-1.0) Urine Leukocyte Esterase 2+ (NEGATIVE) Urine RBC 0-2 /HPF (0 - 2) Urine WBC 5-10 /HPF (0 - 2) Urine Squamous Epithelial Cells Few /LPF (NONE/OCC) Urine Bacteria Few /HPF (NONE) Urine Mucus Few /LPF (NONE/OCC) Sodium Level 142 MMOL/L (136-145) Potassium Level 4.0 MMOL/L (3.5-5.1) Chloride Level 105 MMOL/L (98-107) Carbon Dioxide Level 22 MMOL/L (21-32) Anion Gap 15 mmol/L (5-15) Blood Urea Nitrogen 18 mg/dL (7-18) Creatinine 1.2 MG/DL (0.55-1.30) Estimat Glomerular Filtration Rate 47.3 mL/min (>60) Glucose Level 93 MG/DL (74-106) Calcium Level 9.2 MG/DL (8.5-10.1) Total Bilirubin 0.6 MG/DL (0.2-1.0) Aspartate Amino Transf (AST/SGOT) 26 U/L (15-37) Alanine Aminotransferase (ALT/SGPT) 20 U/L (12-78) Alkaline Phosphatase 91 U/L (46-116) Ammonia 91 umol/L (11-32) Total Protein 7.7 G/DL (6.4-8.2) Albumin 3.8 G/DL (3.4-5.0) Globulin 3.9 g/dL Albumin/Globulin Ratio 1.0 (1.0-2.7) Thyroid Stimulating Hormone (TSH) 0.880 uiU/mL (0.358-3.740) Urine Opiates Screen Negative (NEGATIVE) Urine Barbiturates Screen Negative (NEGATIVE) Phencyclidine (PCP) Screen Negative (NEGATIVE) Urine Amphetamines Screen Negative (NEGATIVE) Urine Benzodiazepines Screen Positive (NEGATIVE) Urine Cocaine Screen Negative (NEGATIVE) Urine Marijuana (THC) Screen Negative (NEGATIVE) Serum Alcohol 53 mg/dL Last Vital Signs Date Time Temp Pulse Resp B/P (MAP) Pulse Ox O2 Delivery O2 Flow Rate FiO2 08/09/19 12:38 77 16 Room Air 08/09/19 12:38 98.1 129/93 96 Status: improved Disposition: HOME, SELF-CARE Condition: Stable Scripts Ondansetron Odt* (ZOFRAN ODT*) 4 Mg Tab.rapdis 4 MG BC EVERY 6 HOURS PRN for Nausea & Vomiting, #10 TAB 0 Refills Prov: Yousif Garcia MD 08/09/19 Yousif Garcia MD Aug 09, 2019 14:16
[2019-08-09 14:18] LABS: ALANINE AMINOTRANSFERASE 20 U/L (12-78); ALBUMIN 3.8 G/DL (3.4-5.0); ALKALINE PHOSPHATASE 91 U/L (46-116); ASPARTATE AMINO TRANSFERASE 26 U/L (15-37); BILIRUBIN,TOTAL 0.6 MG/DL (0.2-1.0)
--- NOTE | 2019-08-09 14:25 | Diagnostic Imaging Report ---
EXAM: CT Head Without Intravenous Contrast CLINICAL HISTORY: PAIN TECHNIQUE: Axial computed tomography images of the head/brain without intravenous contrast. CTDI is 53.4 mGy and DLP is 1072.2 mGy-cm. One or more of the following dose reduction techniques were used: automated exposure control, adjustment of the mA and/or kV according to patient size, use of iterative reconstruction technique. COMPARISON: CT head on 12/23/2016 FINDINGS: Brain: No acute infarct or hemorrhage. No extra-axial fluid collection. No mass effect or midline shift. Ventricles and sulci: Normal. No ventriculomegaly or intraventricular hemorrhage. Bones: Normal. No bony lesion or fracture. Subcutaneous tissues: Normal. Sinuses: Normal. No air-fluid levels or mucosal thickening. Mastoid air cells: Normal. Orbits: Grossly unremarkable. Other: Mild atherosclerotic calcifications of the intracranial vasculature. IMPRESSION: No acute intracranial abnormality.
[2019-08-09] MEDS ORDERED: ONDANSETRON ODT4 MG BC (14:39)
[2019-08-09 14:40] LABS: AMMONIA 91 umol/L (11-32)
[2019-08-09 14:45] VITALS: BP 129/93
--- NOTE | 2019-08-09 14:45 | NUR ---
ER DISCHARGE NOTE: Patient is cleared to be discharged per ERMD, pt is aox4, on room air, with stable vital signs. pt was given dc and prescription instructions, pt was able to verbalize understanding, pt id band and iv site removed without complications. pt is able to ambulate with steady gait. pt took all belongings.
== END 2019-08-09 14:45 | disposition home or self-care (01) ==
LOC: EMR 13:02
DX: T42.4X5A Adverse effect of benzodiazepines, initial encounter (principal); Y92.9 Unspecified place or not applicable; J44.9 Chronic obstructive pulmonary disease, unspecified; Z88.6 Allergy status to analgesic agent
CPT/HCPCS: 36415; 70450; 80053; 80307; 81001; 82140; 84443; 85025; 85610; 85730; 99284; G0480; J7040